=== PATIENT | female | born 1985 | race Caucasian/White ===

== ENCOUNTER 2016-08-25 14:06 | Emergency (ER) | payer SELFPAY ==
[2016-08-25 14:33] VITALS: BP 130/72
--- NOTE | 2016-08-25 14:57 | UC ---
Throat Pain/Nasal Ulises HPI - HPI Summary HPI Summary: R ST, R exterior neck pain, radiation to R ear starting about 2 days ago. Denies cough, nasal congestion, fever, or trouble breathing. - History of Current Complaint Chief Complaint: UCGeneralIllness Stated Complaint: SWOLLEN NECK,SORE THROAT Time Seen by Provider: 08/25/16 14:36 Hx Obtained From: Patient Hx Last Menstrual Period: 07/31/16 ?: No Onset/Duration: Gradual Onset, Lasting Days Severity: Mild Cough: None Associated Signs & Symptoms: Negative: Nasal Discharge, Fever, Vomiting, Rash - Allergies/Home Medications Allergies/Adverse Reactions: Allergies Allergy/AdvReac Type Severity Reaction Status Date / Time No Known Allergies Allergy Verified 08/25/16 14:33 PMH/Surg Hx/FS Hx/Imm Hx Previously Healthy: Yes - Surgical History Surgical History: Yes Surgery Procedure, Year, and Place: c section - Family History Known Family History: Negative: Blood Disorder - Social History Lives: With Family Alcohol Use: Rare Substance Use Type: None Smoking Status (MU): Former Smoker Type: Cigarettes Amount Used/How Often: 1/2PPD Length of Time of Smoking/Using Tobacco: 8 years Household Exposure Type: Cigarettes Review of Systems Constitutional: Negative Skin: Negative Eyes: Negative ENT: Sore Throat, Ear Ache Respiratory: Negative Cardiovascular: Negative Gastrointestinal: Negative Genitourinary: Negative Motor: Negative Neurovascular: Negative Musculoskeletal: Negative Neurological: Negative Psychological: Negative All Other Systems Reviewed And Are Negative: Yes Physical Exam Triage Information Reviewed: Yes Appearance: Well-Appearing, No Pain Distress, Well-Nourished Vital Signs: Initial Vital Signs Temp 97.8 F 08/25/16 14:28 Pulse 86 08/25/16 14:28 Resp 18 08/25/16 14:28 BP 130/72 08/25/16 14:28 Pulse Ox 98 08/25/16 14:28 Vital Signs Reviewed: Yes Eye Exam: Normal Eyes: Positive: Conjunctiva Clear ENT: Positive: Pharynx normal, TMs normal. Negative: Nasal congestion, Nasal drainage, Tonsillar swelling - s/p tonsillectomy Dental Exam: Normal Neck: Positive: Enlarged Nodes @ - R ant cervical Respiratory Exam: Normal Respiratory: Positive: Chest non-tender, Lungs clear, Normal breath sounds, No respiratory distress, No accessory muscle use Cardiovascular Exam: Normal Cardiovascular: Positive: RRR, No Murmur Musculoskeletal Exam: Normal Neurological Exam: Normal Neurological: Positive: Alert Psychological Exam: Normal Skin Exam: Normal Throat Pain/Nasal Course/Dx - Differential Dx/Diagnosis Provider Diagnoses: Strep pharyngitis Discharge - Discharge Plan Condition: Stable Disposition: HOME Prescriptions: Amoxicillin (*) [Amoxicillin 875 MG (*)] 875 mg PO BID #20 tab Patient Education Materials: Strep Throat (ED) Referrals: Syed Perea [Primary Care Provider] -
== END 2016-08-25 15:28 | disposition home or self-care (01) ==
LOC: UCCORT 14:06
DX: J02.0 Streptococcal pharyngitis (principal); Z87.891 Personal history of nicotine dependence
CPT/HCPCS: 87651; 99212; G0463

== ENCOUNTER 2017-01-23 12:24 | Emergency (ER) | payer OTHER ==
[2017-01-23 13:15] VITALS: BP 124/71
--- NOTE | 2017-01-23 14:27 | UC ---
GI Bleed HPI - History Of Current Complaint Chief Complaint: UCGI Stated Complaint: BLOOD IN STOOL Time Seen by Provider: 01/23/17 13:58 Hx Obtained From: Patient Hx Last Menstrual Period: 01/13/17 ?: No - Tubal ligation Onset/Duration: Sudden Onset, Lasting Days - 2 days Timing: Intermittent Episodes Lasting: Severity: Bright Red Blood per Rectum Severity Initially: Moderate Severity Currently: Moderate Pain Intensity: 1 Pain Scale Used: 0-10 Numeric Character: Sharp Aggravating Factor(s): Bowel Movement Associated Signs And Symptoms: Positive: Negative - Risk Factors GI Bleed Risk Factors: Negative - Allergies/Home medications Allergies/Adverse Reactions: Allergies Allergy/AdvReac Type Severity Reaction Status Date / Time seasonal Allergy Sneezing Uncoded 01/23/17 13:15 Home Medications: Home Medications Acetaminophen [Acetaminophen Extra Stren] 1,000 mg PO ONCE PRN 01/23/17 [ History Confirmed 01/23/17] PMH/Surg Hx/FS Hx/Imm Hx Previously Healthy: Yes GI/ History: Other - alicia stool which colored the toilet water. Other GI/ History: negative, LMP- 01/17/2017 and has had a tubal ligation. - Surgical History Surgical History: Yes Surgery Procedure, Year, and Place: c section, tubal ligation 2012 - Family History Known Family History: Negative: Blood Disorder - Social History Lives: With Family Alcohol Use: Rare Substance Use Type: None Smoking Status (MU): Former Smoker Type: Cigarettes Amount Used/How Often: 1/2PPD Length of Time of Smoking/Using Tobacco: 8 years Household Exposure Type: Cigarettes Review of Systems Constitutional: Negative Skin: Negative Eyes: Negative ENT: Negative Respiratory: Negative Cardiovascular: Negative Gastrointestinal: Other - Bright, red stool, which colored the water. Genitourinary: Negative Motor: Negative Neurovascular: Negative Musculoskeletal: Negative Neurological: Negative Psychological: Negative Is Patient Immunocompromised?: No All Other Systems Reviewed And Are Negative: No Physical Exam Triage Information Reviewed: Yes Appearance: Well-Appearing Vital Signs: Initial Vital Signs Temp 98.6 F 01/23/17 13:06 Pulse 74 01/23/17 13:06 Resp 18 01/23/17 13:06 BP 124/71 01/23/17 13:06 Pulse Ox 99 01/23/17 13:06 Vital Signs Reviewed: Yes Eye Exam: Normal ENT Exam: Normal ENT: Positive: Normal ENT inspection Dental Exam: Normal Neck exam: Normal Respiratory Exam: Normal Respiratory: Positive: Lungs clear, Normal breath sounds Cardiovascular Exam: Normal Cardiovascular: Positive: RRR, No Murmur, Pulses Normal, Brisk Capillary Refill Abdominal Exam: Normal Abdomen Description: Positive: Nontender, Soft, Other: - The sanus and rectum have no lesions or active bleeding. No hemorrhoids or lesions palpated . Stool appears dark red. Bowel Sounds: Positive: Present Musculoskeletal Exam: Normal Musculoskeletal: Positive: Strength Intact Neurological Exam: Normal Neurological: Positive: Alert, Muscle Tone Normal Psychological Exam: Normal Skin Exam: Normal Diagnostics - Laboratory Diagnostic Studies Completed/Ordered: Stool heme was nnegative for blood , but the stool was red. Bleed Course/Dx - Differential Dx/Diagnosis Differential Diagnosis/HQI/PQRI: Hemorrhoids, Other - anal fissure. Provider Diagnoses: No blood in stool. Red dye in stool. Discharge - Discharge Plan Condition: Stable Disposition: HOME Print Language: CYPRIOT Referrals: Syed Perea [Primary Care Provider] - Additional Instructions: Your stool is negative for blood, so it is likely some red dye or food you have been eating, that caused the red stool. Please call your doctor for a recheck of the stool later this week.
== END 2017-01-23 14:39 | disposition home or self-care (01) ==
LOC: UCCORT 12:24
DX: R19.5 Other fecal abnormalities (principal); Z87.891 Personal history of nicotine dependence
CPT/HCPCS: 82272; 99211; G0463

== ENCOUNTER 2017-05-30 16:17 | Emergency (ER) | payer OTHER ==
[2017-05-30 18:40] VITALS: BP 124/79
--- NOTE | 2017-05-30 18:55 | UC ---
FLU HPI - HPI Summary HPI Summary: 31 y/o female presents to the urgent care c/o body aches, fatigue, CHI, fever nausea for the past 2 days. Pt reports her father and son were Dx w/ flu about 10 days ago. She wants to make sure she doesn't have the flu. Pain is 2/10. Pt is a former smoker. Pt denies SOB, chest pain, abdominal pain, V/D - History of Current Complaint Chief Complaint: UCRespiratory Stated Complaint: FLU SYMPTOMS Time Seen by Provider: 05/30/17 18:53 Hx Obtained From: Patient Hx Last Menstrual Period: 2 -3 days ago ?: No Onset/Duration: Gradual Onset, Lasting Days - 1 day, Still Present, Worse Since - today Severity Currently: Mild Severity Initially: Moderate Pain Intensity: 2 Pain Scale Used: 0-10 Numeric Associated Signs & Symptoms: Positive: Fever, Myalgia, Sore Throat, Nasal Congestion, Headache - Risk Factors Influenza Risk Factors: Negative - Allergy/Home Medications Allergies/Adverse Reactions: Allergies Allergy/AdvReac Type Severity Reaction Status Date / Time seasonal Allergy Sneezing Uncoded 05/30/17 18:30 PMH/Surg Hx/FS Hx/Imm Hx Previously Healthy: Yes - Pt denies PMHX - Surgical History Surgical History: Yes Surgery Procedure, Year, and Place: c section, tubal ligation 2012 - Family History Known Family History: Positive: None - Pt denies FMHX Negative: Blood Disorder - Social History Occupation: Employed Full-time Lives: With Family Alcohol Use: Rare Substance Use Type: None Smoking Status (MU): Former Smoker Type: Cigarettes Amount Used/How Often: 1/2PPD Length of Time of Smoking/Using Tobacco: 8 years Household Exposure Type: Cigarettes Review of Systems Constitutional: Fever, Chills, Fatigue, Other - body ache Skin: Negative Eyes: Negative ENT: Sore Throat, Nasal Discharge, Sinus Congestion Respiratory: Cough Cardiovascular: Negative Gastrointestinal: Negative Genitourinary: Negative Motor: Negative Neurovascular: Negative Musculoskeletal: Negative Neurological: Negative Psychological: Negative Is Patient Immunocompromised?: No All Other Systems Reviewed And Are Negative: Yes Physical Exam Triage Information Reviewed: Yes Vital Signs: Initial Vital Signs Temp 99.3 F 05/30/17 18:32 Pulse 92 05/30/17 18:32 Resp 20 05/30/17 18:32 BP 124/79 05/30/17 18:32 Pulse Ox 96 05/30/17 18:32 - Additional Comments VITAL SIGNS: Reviewed. GENERAL: Patient is a well developed and nourished female who is sitting comfortable in the examining table. Patient is not in any acute respiratory distress. HEAD AND FACE: No signs of trauma. No ecchymosis, hematomas or skull depressions. No sinus tenderness. edematous erythematous nasal mucosa with yellowish discharge, EYES: PERRLA, EOMI x 2, No injected conjunctiva, clear watery eyes, no nystagmus. No photophobia. EARS: Hearing grossly intact. Ear canals and tympanic membranes are within normal limits. MOUTH: Positive pharynx with erythema, no exudates,no palatal petechiae. no B/L tonsillar enlargement Uvula in midline. NECK: Supple, trachea is midline, Positive anterior cervical lymphadenopathy, no JVD, no carotid bruit, no c-spine tenderness, neck with full ROM. No meningeal signs, no Kernig's or brudzinskis signs. CHEST: Symmetric, no tenderness at palpation LUNGS: Clear to auscultation bilaterally. No wheezing or crackles. CVS: Regular rate and rhythm, S1 and S2 present, no murmurs or gallops appreciated. ABDOMEN: Soft, non-tender. No signs of distention. No rebound no guarding, and no masses palpated. Bowel sounds are normal. EXTREMITIES: FROM in all major joints, no edema, no cyanosis or clubbing. NEURO: Alert and oriented x 3. No acute neurological deficits. Speech is normal and follows commands. SKIN: Dry and warm Flu Course/Dx - Course Course Of Treatment: 31 y/o female presents to the urgent care c/o body aches, fatigue, CHI, fever nausea for the past 2 days. Pt reports her father and son were Dx w/ flu about 10 days ago. She wants to make sure she doesn't have the flu. Pain is 2/10. Pt is a former smoker. Pt denies SOB, chest pain, abdominal pain, V/D. Hx obtained. Pt with URI on examination. Influenza A&B ordered: result: Negative. Pt given Ibuprofen PO as per Pt's request. PT Rx ibuprofen PO to alleviates symptoms. Advised on hand washing. Pt advised to rest, increase fluid intake, eat well and avoid strenuous exercise. If symptoms do not improve or worsen advised to return to the urgent care or f/u with her PCP for further evaluation and treatment. Pt understood and agreed with plan of care. - Differential Dx/Diagnosis Differential Diagnosis/HQI/PQRI: Bronchitis, Influenza, Pneumonia, Upper Respiratory Infection Provider Diagnoses: 1- Upper respiratory infection Discharge - Discharge Plan Condition: Stable Disposition: HOME Prescriptions: Ibuprofen TAB* [Motrin TAB* 800 MG] 800 mg PO Q6H PRN #20 tab PRN Reason: Fever Patient Education Materials: Upper Respiratory Infection (ED) Forms: *Work Release Referrals: Syed Perea [Primary Care Provider] - 3 Days Additional Instructions: 1-Please take ibuprofen PO q6-8hrs prn as instructed after meals to alleviate pain and swelling. Increase fluid intake, eat well, rest and avoid strenuous exercise 2-If symptoms do not improve or worsen please return to the urgent care or f/u with your PCP for further evaluation and treatment.
[2017-05-30] MEDS ORDERED: Ibuprofen TAB* 400 MG PO ONE (19:01)
== END 2017-05-30 19:23 | disposition home or self-care (01) ==
LOC: UCCORT 16:17
DX: J06.9 Acute upper respiratory infection, unspecified (principal); Z87.891 Personal history of nicotine dependence
CPT/HCPCS: 87502; 99212; A9270-GY; G0463

== ENCOUNTER 2018-04-11 12:20 | Emergency (ER) | payer OTHER ==
[2018-04-11 15:36] VITALS: BP 115/73
--- NOTE | 2018-04-11 16:02 | UC ---
FLU HPI - HPI Summary HPI Summary: Pt presents with c/o sudden onest of fever chills and body aches X 2 days. Pt also c/o sinus congestion, pressure and pain X 3 weeks. - History of Current Complaint Chief Complaint: UCGeneralIllness Stated Complaint: SINUS COMPLAINT Time Seen by Provider: 04/11/18 15:36 Hx Obtained From: Patient Hx Last Menstrual Period: 03/28/18 ?: No Onset/Duration: Sudden Onset, Gradual Onset, Lasting Days, Lasting Weeks, Still Present Severity Currently: Mild Severity Initially: Mild Pain Intensity: 2 Associated Signs & Symptoms: Positive: Myalgia, Nasal Congestion - Risk Factors Influenza Risk Factors: Negative - Allergy/Home Medications Allergies/Adverse Reactions: Allergies Allergy/AdvReac Type Severity Reaction Status Date / Time seasonal Allergy Sneezing Uncoded 05/30/17 18:30 PMH/Surg Hx/FS Hx/Imm Hx Previously Healthy: Yes - Surgical History Surgical History: Yes Surgery Procedure, Year, and Place: c section, tubal ligation 2012 - Family History Known Family History: Positive: None - Pt denies FMHX, Cardiac Disease Negative: Blood Disorder - Social History Occupation: Employed Full-time Lives: With Family Alcohol Use: Rare Substance Use Type: None Smoking Status (MU): Former Smoker Type: Cigarettes Amount Used/How Often: 1/2PPD Length of Time of Smoking/Using Tobacco: 8 years Have You Smoked in the Last Year: Yes Household Exposure Type: Cigarettes Review of Systems All Other Systems Reviewed And Are Negative: Yes Constitutional: Positive: Fever, Chills, Fatigue Skin: Positive: Negative Eyes: Positive: Negative ENT: Positive: Sore Throat, Sinus Congestion, Sinus Pain/Tenderness Respiratory: Positive: Cough Cardiovascular: Positive: Negative Gastrointestinal: Positive: Negative Genitourinary: Positive: Negative Motor: Positive: Negative Neurovascular: Positive: Negative Musculoskeletal: Positive: Myalgia Neurological: Positive: Headache Psychological: Positive: Negative Is Patient Immunocompromised?: No Physical Exam Triage Information Reviewed: Yes Appearance: Well-Appearing Vital Signs: Initial Vital Signs Temp 97.6 F 04/11/18 15:31 Pulse 95 04/11/18 15:31 Resp 22 04/11/18 15:31 BP 115/73 04/11/18 15:31 Pulse Ox 97 04/11/18 15:31 Vital Signs Reviewed: Yes Eye Exam: Normal ENT: Positive: Nasal congestion Dental Exam: Normal Neck exam: Normal Respiratory Exam: Normal Cardiovascular Exam: Normal Musculoskeletal Exam: Normal Neurological Exam: Normal Psychological Exam: Normal Skin Exam: Normal Diagnostics - Laboratory Diagnostic Studies Completed/Ordered: rapid flu: negative Flu Course/Dx - Differential Dx/Diagnosis Differential Diagnosis/HQI/PQRI: Bronchitis, Influenza, Upper Respiratory Infection Provider Diagnosis: Viral syndrome Discharge - Sign-Out/Discharge Documenting (check all that apply): Patient Departure All imaging exams completed and their final reports reviewed: No Studies - Discharge Plan Condition: Stable Disposition: HOME Patient Education Materials: Viral Syndrome (ED) Referrals: Catrachita Marino PA [Primary Care Provider] - If Needed - Billing Disposition and Condition Condition: STABLE Disposition: Home
== END 2018-04-11 16:26 | disposition home or self-care (01) ==
LOC: UCCORT 12:20
DX: B34.9 Viral infection, unspecified (principal); Z87.891 Personal history of nicotine dependence
CPT/HCPCS: 99212; G0463

== ENCOUNTER 2019-06-18 09:19 | Emergency (ER) | payer OTHER ==
[2019-06-18 11:15] VITALS: BP 122/69
--- NOTE | 2019-06-18 11:17 | UC ---
FLU HPI - HPI Summary HPI Summary: 33yo female presenting with sore throat, fever and chills, and mild cough since yesterday. States she "mostly feels better today but work wants her tested for the flu." Denies fever and chills today. Notes minimal sore throat and cough today. Denies n/v/d. Denies taking anything for symptom relief. Normal appetite. - History of Current Complaint Chief Complaint: UCRespiratory Stated Complaint: ST,CHILLS,ACHES Hx Obtained From: Patient Hx Last Menstrual Period: 06/12/19 Pain Intensity: 2 - Allergy/Home Medications Allergies/Adverse Reactions: Allergies Allergy/AdvReac Type Severity Reaction Status Date / Time No Known Allergies Allergy Verified 06/18/19 11:12 Home Medications: Home Medications NK [No Home Medications Reported] 06/18/19 [History Confirmed 06/18/19] PMH/Surg Hx/FS Hx/Imm Hx Previously Healthy: Yes - Surgical History Surgical History: Yes Surgery Procedure, Year, and Place: c section, tubal ligation 2012 - Family History Known Family History: Positive: None - Pt denies FMHX, Cardiac Disease Negative: Blood Disorder - Social History Alcohol Use: Rare Substance Use Type: None Smoking Status (MU): Former Smoker Type: Cigarettes Amount Used/How Often: 1/2PPD Length of Time of Smoking/Using Tobacco: 8 years Have You Smoked in the Last Year: Yes Household Exposure Type: Cigarettes Review of Systems All Other Systems Reviewed And Are Negative: Yes Constitutional: Positive: Fever, Chills ENT: Positive: Sore Throat Respiratory: Positive: Cough. Negative: Shortness Of Breath Cardiovascular: Positive: Negative Gastrointestinal: Positive: Negative Musculoskeletal: Positive: Myalgia Neurological/Mental Status: Positive: Negative Physical Exam - Summary Physical Exam Summary: Vital Signs Reviewed: Yes A+Ox3, no distress, well-appearing Eyes: Conjunctiva Clear ENT: Hearing grossly normal, TM x 2 clear, moist, uvula midline, no exudate, no erythema Neck: Positive: Supple Respiratory: Positive: No respiratory distress, No accessory muscle use + CTA throughout no w/r Cardiovascular: RRR nl s1, s2 no m/r Musculoskeletal Exam: CHOWDARY x 4 without difficulty Neurological: Positive: Alert Psychological: Positive: age appropriate behavior Skin: Positive: no rash, no ecchymosis Vital Signs: Initial Vital Signs Temp 97.6 F 06/18/19 11:12 Pulse 90 06/18/19 11:12 Resp 20 06/18/19 11:12 BP 122/69 06/18/19 11:12 Pulse Ox 97 06/18/19 11:12 Lab Results 06/18/19 Range/Units 11:34 Influenza A (Rapid) Negative (Negative) Influenza B (Rapid) Negative (Negative) Flu Course/Dx - Course Course Of Treatment: Negative flu. Discussed viral illness and symptomatic treatment with patient. Instructed to follow up with pcp if symptoms not improved within 7 days. Mother voiced understanding and agreed with treatment plan. - Differential Dx/Diagnosis Differential Diagnosis/HQI/PQRI: Influenza, Upper Respiratory Infection Provider Diagnosis: URI (upper respiratory infection) Discharge ED - Sign-Out/Discharge Documenting (check all that apply): Patient Departure All imaging exams completed and their final reports reviewed: No Studies - Discharge Plan Condition: Stable Disposition: HOME Patient Education Materials: Viral Syndrome (ED) Referrals: Catrachita Marino PA [Primary Care Provider] - If Needed Additional Instructions: As discussed, you tested negative for influenza today. You symptoms are likely caused by a virus and should resolve without treatment. You may continue with motrin for fever and pain relief. Get plenty of rest and increase your fluid intake. Follow up with your primary care provider if symptoms do not resolve within 5-7 days. - Billing Disposition and Condition Condition: STABLE Disposition: Home
[2019-06-18 11:46] LABS: Influenza A Molecular Negative (Negative); Influenza B Molecular Negative (Negative)
== END 2019-06-18 11:59 | disposition home or self-care (01) ==
LOC: UCCORT 09:19
DX: J06.9 Acute upper respiratory infection, unspecified (principal); R50.9 Fever, unspecified; Z87.891 Personal history of nicotine dependence; M79.10 Myalgia, unspecified site
CPT/HCPCS: 99211; G0463

== ENCOUNTER 2019-06-25 10:19 | Emergency (ER) | payer OTHER ==
[2019-06-25 12:06] VITALS: BP 127/69
[2019-06-25 12:25] LABS: Influenza A Molecular Negative (Negative); Influenza B Molecular Negative (Negative)
--- NOTE | 2019-06-25 12:53 | UC ---
Throat Pain/Nasal Ulises HPI - HPI Summary HPI Summary: 33-year-old female presents with complaints of nasal congestion, sinus pressure , sore throat, and a nonproductive cough for over a week. Patient was seen at this facility on 06/18/2019 and was diagnosed with a viral upper respiratory infection. She had a negative flu test at that time. Patient states that the nasal drainage was initially clear but has now become a thick green color. No recent travel. Denies fever, chills, ear pain, dysphagia, chest pain, shortness of breath, abdominal pain, nausea, vomiting, or diarrhea. - History of Current Complaint Chief Complaint: UCGeneralIllness Stated Complaint: COUGH/ST/CONGESTION Time Seen by Provider: 06/25/19 12:20 Hx Obtained From: Patient Hx Last Menstrual Period: 06/12/19 Pain Intensity: 0 - Allergies/Home Medications Allergies/Adverse Reactions: Allergies Allergy/AdvReac Type Severity Reaction Status Date / Time No Known Allergies Allergy Verified 06/25/19 12:06 Home Medications: Home Medications Amoxicillin/Clavulanate TAB* [Augmentin TAB 875*] 875 mg PO BID #20 tab [Rx] Benzonatate CAP* [Tessalon 100 MG CAP*] 100 mg PO TID PRN #21 cap 06/25/19 [Rx] PMH/Surg Hx/FS Hx/Imm Hx Previously Healthy: Yes - Denies significant PMH - Surgical History Surgical History: Yes Surgery Procedure, Year, and Place: c section, tubal ligation 2012 - Family History Known Family History: Positive: Cardiac Disease Negative: Blood Disorder - Social History Occupation: Employed Full-time Lives: Alone Alcohol Use: Rare Substance Use Type: None Smoking Status (MU): Former Smoker Type: Cigarettes Amount Used/How Often: 1/2PPD Length of Time of Smoking/Using Tobacco: 1 year Have You Smoked in the Last Year: Yes Household Exposure Type: Cigarettes Review of Systems All Other Systems Reviewed And Are Negative: Yes Constitutional: Negative: Fever, Chills Eyes: Negative: Drainage, Eye Redness ENT: Positive: Sore Throat, Nasal Discharge, Sinus Congestion, Sinus Pain/ Tenderness. Negative: Ear Ache Respiratory: Positive: Cough. Negative: Shortness Of Breath Cardiovascular: Negative: Chest Pain Gastrointestinal: Negative: Abdominal Pain, Vomiting, Diarrhea, Nausea Genitourinary: Positive: Negative Musculoskeletal: Positive: Negative Neurological/Mental Status: Positive: Negative Is Patient Immunocompromised?: No Physical Exam - Summary Physical Exam Summary: GENERAL APPEARANCE: Alert and cooperative obese adult female who appears to be in no acute distress. EYES: Conjunctiva clear. No drainage. EARS: External auditory canals and tympanic membranes clear, hearing grossly intact. NOSE: Moderate nasal congestion. No nasal discharge. Maxillary sinus tenderness. THROAT: Pharyngeal erythema. No tonsilar inflammation, swelling, exudate, or lesions. Uvula midline. NECK: Neck supple, non-tender without lymphadenopathy. CARDIAC: Normal S1 and S2. No S3, S4 or murmurs. Rhythm is regular. There is no peripheral edema, cyanosis or pallor. Extremities are warm and well perfused. Capillary refill is less than 2 seconds. Peripheral pulses intact. LUNGS: Clear to auscultation without rales, rhonchi, wheezing or diminished breath sounds. Nonproductive cough. ABDOMEN: Positive bowel sounds. Soft, nondistended, nontender. No guarding or rebound. No masses or hepatosplenomegally. MUSKULOSKELETAL: ROM intact to all extremities. No joint erythema or tenderness. Normal muscular development. Normal gait. SKIN: Skin normal color, texture and turgor with no lesions or eruptions. Triage Information Reviewed: Yes Vital Signs: Initial Vital Signs Temp 97.7 F 06/25/19 12:00 Pulse 95 06/25/19 12:00 Resp 18 06/25/19 12:00 BP 127/69 06/25/19 12:00 Pulse Ox 97 06/25/19 12:00 Vital Signs Reviewed: Yes Throat Pain/Nasal Course/Dx - Course Course Of Treatment: 33-year-old female presents with complaints of nasal congestion, sinus pressure , sore throat, and a nonproductive cough for over a week. Patient was seen at this facility on 06/18/2019 and was diagnosed with a viral upper respiratory infection. She had a negative flu test at that time. Patient states that the nasal drainage was initially clear but has now become a thick green color. No recent travel. Denies fever, chills, ear pain, dysphagia, chest pain, shortness of breath, abdominal pain, nausea, vomiting, or diarrhea. Afebrile. Vital signs stable. Patient had moderate nasal congestion, maxillary sinus tenderness, normal TMs, pharyngeal erythema without tonsillar swelling or exudate, no cervical lymphadenopathy, clear bilateral breath sounds, nonproductive cough, and otherwise unremarkable exam. Repeat rapid flu test was negative. Reviewed results with the patient. Considering the duration and worsening of symptoms will treat her for a upper respiratory infection versus sinusitis with a course of Augmentin 875 mg twice a day 10 days. Also recommending symptomatic treatment including Tessalon Perles 1 capsule every 8 hours as needed for cough. She is to follow-up with her primary care provider in 3-5 days if symptoms are not improving. Anticipatory guidance and warning symptoms reviewed with the patient. Verbalizes understanding and agrees with plan of care. - Differential Dx/Diagnosis Differential Diagnosis/HQI/PQRI: Influenza, Pharyngitis, Sinusitis, Tonsillitis , URI Provider Diagnosis: URI with cough and congestion Discharge ED - Sign-Out/Discharge Documenting (check all that apply): Patient Departure All imaging exams completed and their final reports reviewed: No Studies - Discharge Plan Condition: Stable Disposition: HOME Prescriptions: Amoxicillin/Clavulanate TAB* [Augmentin TAB 875*] 875 mg PO BID #20 tab Benzonatate CAP* [Tessalon 100 MG CAP*] 100 mg PO TID PRN #21 cap PRN Reason: Cough Patient Education Materials: Upper Respiratory Infection (ED) Referrals: Catrachita Marino PA [Primary Care Provider] - 3 Days Additional Instructions: Your history and exam are consistent with an respiratory infection vs sinus infection. Considering the duration of your symptoms we will start you on an antibiotic to treat the infection. Start Augmentin 875 mg twice a day for 10 days. Take with food in order to avoid upset stomach. Be sure to complete the entire course even if feeling better. Drink plenty of fluids to avoid dehydration especially if you are running any fever. Use a saline rinse kit such as Neti Pot or NeilMed at least twice a day to help thin secretions and promote drainage of the sinuses. Use fluticasone (Flonase) nasal spray 2 sprays each nostril once daily. Take over the counter acetaminophen (Tylenol) or ibuprofen (Advil, Motrin) according to directions as needed for pain or fever. Use salt water gargles several times a day if you have a sore throat. You may also use Chloraseptic spray or Cepacol lonzenges according to directions which contain a numbing medication and can provide some temporary relief from your sore throat. Use Tessalon Perles one capsule every 8 hours as needed for cough. Follow up with your primary care provider in 3-5 days if symptoms persist. Seek immediate medical attention in the emergency room if you have fever greater than 100.5 F despite taking acetaminophen or ibuprofen, have chest pain , difficulty breathing, are unable to swallow, or have any worsening of symptoms. - Billing Disposition and Condition Condition: STABLE Disposition: Home
== END 2019-06-25 13:08 | disposition home or self-care (01) ==
LOC: UCCORT 10:19
DX: J06.9 Acute upper respiratory infection, unspecified (principal); R05 Cough; R09.81 Nasal congestion; Z87.891 Personal history of nicotine dependence
CPT/HCPCS: 99212; G0463